=== PATIENT | female | born 1940 ===

== ENCOUNTER 2020-10-31 05:50 | Day surgery (SDC) | payer OTHER ==
[~2020-10-31 05:50] MED LIST: ARICEPT5 MG PO; ATORVASTATIN CA20 MG PO; B12 ACTIVE1000 MCG PO; CHILDREN'S ASPI81 MG PO; COZAAR50 MG PO; HYDROXYZIN10 MG/5 ML PO; JANUMET 50-5001 EACH PO; MONTELUKAST SOD10 MG PO; PROTONIX40 M1 PO; SYNTHROID88 MCG PO; TOPROL XL50 M1 PO
[2020-10-31] MEDS ORDERED: ULTRACET PO (08:29)
[2020-10-31] MEDS ORDERED: DUI500 PO (08:29)
== END 2020-10-31 10:10 | disposition home or self-care (01) ==
LOC: CIR.AMB 05:50
PROVIDERS: ATTEND Orthopaedic Surgery
DX: M65.342 Trigger finger, left ring finger (principal); M65.841 Other synovitis and tenosynovitis, right hand; Z20.822 Contact with and (suspected) exposure to COVID-19

== ENCOUNTER 2021-09-12 08:49 | Outpatient (CLI) | payer OTHER ==
[~2021-09-12 08:49] MED LIST changes: +DUI500 PO; +ULTRACET PO
== END 2021-09-12 09:00 | disposition home or self-care (01) ==
LOC: RAD 08:49
PROVIDERS: ATTEND Internal Medicine Pulmonary Disease
DX: G47.33 Obstructive sleep apnea (adult) (pediatric) (principal); R06.00 Dyspnea, unspecified; J45.30 Mild persistent asthma, uncomplicated; E11.29 Type 2 diabetes mellitus with other diabetic kidney complication